=== PATIENT | female | born 1960 | race Caucasian/White ===

== ENCOUNTER 2022-12-29 14:59 | Outpatient (CLI) | payer BC | END 2022-12-29 15:00 | disposition critical access hospital (66) | LOC: EMS 14:59 | DX: S89.91XA Unspecified injury of right lower leg, initial encounter (principal); W07.XXXA Fall from chair, initial encounter; Y93.89 Activity, other specified; Y92.009 Unspecified place in unspecified non-institutional (private) residence as the place of occurrence of the external cause | CPT/HCPCS: A0425; A0429 ==

== ENCOUNTER 2022-12-29 15:14 | Emergency (ER) | payer BC, OTHER ==
--- NOTE | 2022-12-29 15:21 | ED Physician Documentation ---
PD HPI LOWER EXT INJURY - Stated complaint Stated Complaint: GLF - History obtained from History obtained from: Patient, EMS - Additional information Additional information: She was up on a chair taking thumbtacks out of the wall and fell directly onto her right knee. No other injuries. No head injury. She is able to walk on it and bear weight albeit slowly and gingerly. Declines pain medication on initial evaluation. PD PAST MEDICAL HISTORY - Allergies Allergies/Adverse Reactions: Allergies Allergy/AdvReac Type Severity Reaction Status Date / Time ibuprofen Allergy Severe Anaphylaxis Verified 12/29/22 15:26 latex Allergy Severe Unknown Verified 12/29/22 15:26 PD ED PE NORMAL - Vitals Vital signs reviewed: Yes - General General: Alert and oriented X 3, No acute distress - Extremities Extremities: Other (There is a large effusion of the right knee with limited range of motion due to same but no serious tenderness or deformity.) - Neuro Neuro: Alert and oriented X 3, Normal speech Results - Vitals Vitals: Vital Signs - 24 hr 12/29/22 12/29/22 15:17 16:01 Temperature 37 C Heart Rate 89 76 Respiratory 16 16 Rate Blood Pressure 119/83 H 118/83 H O2 Saturation 98 99 Oxygen O2 Source Room air - Rads (name of study) 4V R knee XR Relevant Findings:: EMP independent interpretation of test (Transverse patellar fracture with large effusion) PD Medical Decision Making - ED course ED course: She lives in [place] and plans to follow-up with an orthopedist in that area. We placed her in a knee immobilizer and gave her walker. She declined pain medication. Departure - Departure Disposition: 01 Home, Self Care Clinical Impression: Patellar fracture Qualifiers: Encounter type: initial encounter Fracture type: closed Fracture morphology: transverse Fracture alignment: displaced Laterality: right Qualified Code(s): S82.031A - Displaced transverse fracture of right patella, initial encounter for closed fracture Condition: Good Record reviewed to determine appropriate education?: Yes Instructions: ED Fx Patella Comments: Call to see an orthopedist in your area, probably need to follow-up within the week for evaluation for potential surgery. Keep the splint on and dry until then. You can walk and bear weight on it but do not bend the leg. Elevate and you can take Tylenol and/or ibuprofen as needed for pain. Return for new or worsening symptoms. Forms: PCP List Discharge Date/Time: 12/29/22 16:25
[2022-12-29 16:01] VITALS: BP 118/83
--- NOTE | 2022-12-29 19:21 | XRAY Report ---
PROCEDURE: Knee 4 View RT INDICATIONS: knee inj TECHNIQUE: 4 views of the right knee(s) were acquired. COMPARISON: None. FINDINGS: Bones: There is a minimally displaced fracture through the mid patella. Tricompartmental arthritic c hange. Soft tissues: Large knee joint effusion. No suspicious soft tissue calcifications or masses. IMPRESSION: Large effusion with minimally displaced mid patellar fracture. Reviewed by: Hailey Valdovinos MD on 12/29/2022 7:19 PM PDT Approved by: Hailey Valdovinos MD on 12/29/2022 7:19 PM PDT Station ID: [id number]
== END 2022-12-29 16:25 | disposition home or self-care (01) ==
LOC: EDUNIT# → ED 15:14
DX: S82.031A Displaced transverse fracture of right patella, initial encounter for closed fracture (principal); W18.30XA Fall on same level, unspecified, initial encounter; Z91.040 Latex allergy status
CPT/HCPCS: 99283